=== PATIENT | female | born 1990 | race Caucasian/White ===

== ENCOUNTER 2017-10-22 22:45 | Emergency (ER) | payer OTHER ==
[~2017-10-22] VITALS: Ht 175.3 cm; Wt 129.3 kg
[2017-10-22] MEDS ORDERED: TORADOL ONE (23:09)
[2017-10-22] MEDS ORDERED: TORADOL IM STA (23:09)
[2017-10-22] MEDS ORDERED: PHENERGAN IV STA (23:14)
--- NOTE | 2017-10-22 23:14 | ER.PDOC ---
General Chief Complaint: Abdomen Pain Stated Complaint: R SIDE PAIN Time seen by MD: 23:12 Source: patient Exam Limitations: no limitations History of Present Illness Initial Comments Right lower back pain Timing/Duration: this evening Severity/Quality: moderate Method of Injury: unknown Associated Symptoms: denies symptoms Allergies: Coded Allergies: No Known Allergies (Unverified , 10/17/14) Home Meds No Active Prescriptions or Reported Meds Past Medical History Medical History: diabetes Surgical History: cholecystectomy LMP (females 10-50): this week Social History Smoking: non-smoker Alcohol Use: none Drug Use: none Review of Systems Constitutional: no symptoms reported EENTM: no symptoms reported Respiratory: no symptoms reported Cardiovascular: no symptoms reported Musculoskeletal: see HPI All Other Systems: Reviewed and Negative Physical Exam General Appearance: No Apparent Distress, WD/WN HEENT: PERRL/EOMI, Normal ENT Inspection, TMs Normal, Pharynx Normal Neck: Non-Tender, Normal Alignment Cardiovascular/Respiratory: Regular Rate, Rhythm, No M/R/G, Normal Peripheral Pulses, No JVD, Normal Breath Sounds, No Respiratory Distress Gastrointestinal: Normal Bowel Sounds, No Organomegaly, No Pulsatile Mass, Non Tender, Soft Back: Normal Inspection 1 - tender Extremities: No Evidence of Injury, Normal Range of Motion, Non-Tender, No Pedal Edema, Pelvis Stable Neuro/Psych: Alert, 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, mood/effect nml, No Motor/Sensory Deficits, Relexes nml Results/Orders Results/Orders Laboratory Tests Test 10/22/17 00:00 10/22/17 23:25 Urine Collection Type CCMS Urine Color YELLOW (YELLOW) Urine Appearance CLOUDY (CLEAR) Urine Bilirubin NEGATIVE MG/DL (NEGATIVE) Urine Ketones 5 mg/dL (NEGATIVE) Urine Specific [place] 1.030 (1.005-1.035) Urine pH 5 (5.0-6.0) Urine Protein 30 mg/dL (NEGATIVE) Urine Urobilinogen 1.0 (NEGATIVE) Urine Nitrate NEGATIVE (NEGATIVE) Urine Leukocyte Esterase 25 /uL TRACE (NEGATIVE) Urine Blood 250 4+ (NEGATIVE) Urine RBC TNTC RBC/HPF (NONE SEEN) Urine WBC 2-5 WBC/HPF (0-2) Urine Squamous Epithelial Cells MODERATE #/HPF (FEW) Urine Calcium Oxalate Crystals MODERATE (NONE SEEN) Urine Bacteria RARE (NONE SEEN) Urine Glucose NORMAL (NEGATIVE) Urine HCG, Qualitative NEGATIVE (NEGATIVE) White Blood Count 10.4 10^3/uL (4.5-11.0) Red Blood Count 5.07 10^6/uL (4.00-5.20) Hemoglobin 12.5 g/dL (12.0-15.0) Hematocrit 39.9 % (36.0-46.0) Mean Corpuscular Volume 78.7 fL (78-100) Mean Corpuscular Hemoglobin 24.7 pg (26-34) Mean Corpuscular Hemoglobin Concent 31.3 g/dL (33-37) Red Cell Distribution Width 14.6 % (11.5-14.5) Platelet Count 274 10^3/uL (150-400) Mean Platelet Volume 11.3 fL (7.8-11.0) Neutrophils (%) (Auto) 66.3 % (41.0-85.0) Lymphocytes (%) (Auto) 23.6 % (24.0-44.0) Monocytes (%) (Auto) 6.7 % (5.0-12.0) Neutrophils # (Auto) 6.9 10^3/uL (1.8-7.7) Lymphocytes # (Auto) 2.5 10^3/uL (1.0-4.8) Monocytes # (Auto) 0.7 10^3/uL (0.3-0.8) Absolute Immature Granulocyte (auto 0.01 10^3 u/L (0-2) Eosinophils % 3.1 % (0.0-5.0) Basophils % 0.2 % (0.0-0.2) Basophils # 0.0 10^3/uL (0.0-0.1) Eosinophil Count 0.3 10^3/uL (0.0-0.2) Prothrombin Time 11.0 SEC (9.8-11.9) Prothrombin Time INR (Non-Therap) 1.0 Activated Partial Thromboplast Time 27.7 SEC (24.67-30.72) Sodium Level 138 mmol/L (132-145) Potassium Level 3.7 mmol/L (3.6-5.2) Chloride Level 104.0 mmol/L (96-109) Carbon Dioxide Level 26.5 mmol/L (20.0-32) Anion Gap 11.2 Blood Urea Nitrogen 15 mg/dL (7-18) Creatinine 0.98 mg/dL (0.59-1.40) Estimated GFR () 83.0 (>/=60) BUN/Creatinine Ratio 15.0 Glucose Level 127 mg/dL (70-110) Calcium Level 9.4 mg/dL (8.4-10.5) Total Bilirubin 0.5 mg/dL (0.2-1.0) Aspartate Amino Transf (AST/SGOT) 25 U/L (0-35) Alanine Aminotransferase (ALT/SGPT) 60 U/L (12-78) Alkaline Phosphatase 78 U/L (50-136) Total Protein 7.0 g/dL (6.4-8.2) Albumin 3.9 g/dL (3.4-5.0) Globulin 3.1 Percent Immature Gran (Cell Imm) 0.10 % (0.00-0.50) Administered Medications Medications (Trade) Dose Ordered Sig/Brianda Route PRN Reason Start Time Stop Time Status Last Admin Dose Admin Ketorolac Tromethamine (Toradol) 60 mg STAT STAT IM 10/22/17 23:09 10/22/17 23:12 DC 10/22/17 23:13 EKG/XRAY/CT/US CT Comments: 3mm right UVJ stone Departure Time of Disposition: 00:55 Disposition: 01 HOME, SELF-CARE Impression: Primary Impression: Calculus of right ureter Additional Impression: UTI (urinary tract infection) Condition: Stable Referrals: Christiana BAEZ (PCP) PRIMARY CARE PROVIDER Additional Instructions: Tramadol Flomax Cipro Push fluids F/U with Dr. Perea in 2-3 days if no improvement. Scripts No Active Prescriptions or Reported Meds Duration or Time Spent with Pa: 70 mins Problem Qualifiers Additional Impression: UTI (urinary tract infection) Urinary tract infection type: site unspecified Hematuria presence: with hematuria Qualified Codes: N39.0 - Urinary tract infection, site not specified ; R31.9 - Hematuria, unspecified LUIS MANUEL CHINCHILLA MD Oct 22, 2017 23:14
[2017-10-22 23:15] LABS: BILIRUBIN,URINE NEGATIVE (NEGATIVE)
[2017-10-22 23:26] LABS: UA COLOR YELLOW (YELLOW)
[2017-10-22 23:27] LABS: APPEARANCE,URINE CLOUDY (CLEAR)
[2017-10-22 23:30] LABS: BASOPHIL % 0.2 % (0.0-0.2); EOSINOPHIL # 0.3 10^3/uL (0.0-0.2); EOSINOPHIL % 3.1 % (0.0-5.0); HEMOGLOBIN 12.5 g/dL (12.0-15.0); LYMPHOCYTES # 2.5 10^3/uL (1.0-4.8); LYMPHOCYTES % 23.6 % (24.0-44.0); MEAN CELL HGB 24.7 pg (26-34); MEAN CELL HGB CONCENTRATION 31.3 g/dL (33-37); MEAN CORP VOLUME 78.7 fL (78-100); MEAN PLATELET VOLUME 11.3 fL (7.8-11.0); MONOCYTES # 0.7 10^3/uL (0.3-0.8); MONOCYTES % 6.7 % (5.0-12.0); NEUTROPHIL # 6.9 10^3/uL (1.8-7.7); NEUTROPHILS % 66.3 % (41.0-85.0); RED CELL DISTRIBUTION WIDTH 14.6 % (11.5-14.5); WHITE BLOOD CELL 10.4 10^3/uL (4.5-11.0)
[2017-10-23 00:11] LABS: CALCIUM 9.4 mg/dL (8.4-10.5); CARBON DIOXIDE 26.5 mmol/L (20.0-32)
--- NOTE | 2017-10-23 00:17 | DIREP ---
PROCEDURE:CT ABDOMEN/PELVIS W/O CONTRAST COMPARISON:None. INDICATIONS:Right Lumbar pain TECHNIQUE:Axial images were created through the abdomen and pelvis without intravenous contrast material. No oral contrast was administered. Sagittal and coronal reconstructions were performed from source images. FINDINGS: LUNG BASES:Normal. No visible pulmonary or pleural disease. LIVER:Normal. No significant liver lesions are identified. BILIARY:Normal. No visible dilatation or calcification. PANCREAS:Normal. No lesion, fluid collection, ductal dilatation, or atrophy. SPLEEN:Normal. No enlargement or focal lesion. ADRENALS:Normal. No mass or enlargement. URINARY TRACT:Mild right hydronephrosis and hydroureter with 3 mm obstructing stone in the distal right ureterovesicular junction. No left-sided hydronephrosis. AORTA/VASCULAR:Normal. No aneurysm. RETROPERITONEUM:Prominent nonenlarged retroperitoneal lymph nodes. No mass. BOWEL/MESENTERY:Prominent nonenlarged mesenteric lymph nodes. Normal. There is no intestinal obstruction, free fluid, free air or mesenteric inflammatory changes. ABDOMINAL WALL:Normal. No mass or hernia. PELVIC ORGANS:Normal. No visible mass. Pelvic organs appropriate for patient age. BONES:Normal for age. No bony lesion or acute fracture. OTHER:Negative. CONCLUSION: 1. Mild right hydronephrosis and hydroureter secondary to 3 mm distal obstructing stone at the ureterovesicular junction. 2. Nonspecific nonenlarged retroperitoneal and mesenteric lymph nodes. Dictated by: Fer Collado DO on 10/23/2017 at 00:12 AM
[2017-10-23] MEDS ORDERED: FLOMAX PO STA (00:57)
[2017-10-23] MEDS ORDERED: ZOFRAN ODT SL STA (00:57)
[2017-10-23] MEDS ORDERED: DEMEROL IM STA (00:57)
--- NOTE | 2017-10-23 01:12 | NUR ---
dr itz CALLOWAYASPEAKING WITH DR HINES, APTIENT TO BE ADMITTED TO ICU
[2017-10-23] MEDS ORDERED: ZOFRAN ODT ONE (01:18)
[2017-10-23] MEDS ORDERED: FLOMAX ONE (01:18)
[2017-10-23] MEDS ORDERED: DEMEROL ONE (01:18)
[2017-10-23 01:42] VITALS: BP 93/74
== END 2017-10-23 01:40 | disposition home or self-care (01) ==
LOC: ER 22:45
DX: N20.1 Calculus of ureter (principal); N39.0 Urinary tract infection, site not specified; E11.9 Type 2 diabetes mellitus without complications; Z90.49 Acquired absence of other specified parts of digestive tract
CPT/HCPCS: 36415; 74176; 80053; 81000; 81025; 85025; 85610; 85730; 87086; 96372 ×2; 99285; J1885; J2175; Q0162

== ENCOUNTER 2017-11-26 18:05 | Emergency (ER) | payer OTHER ==
[~2017-11-26] VITALS: Ht 175.3 cm; Wt 124.7 kg
--- NOTE | 2017-11-26 18:05 | NUR ---
ARRIVAL PT ARRIVED VIA STRETCHER BY [facility] TO ER 4 C/O SYNCOPAL EPISODEAT APPROXIMATELY 1730. PT STATES "I THINK I HAVE A SINUS INFECTION". PT STATES PAIN TO RIGHT SIDE OF FACE AND CONGESTION. PT STATES WAS SITTING AT KITCHEN TABLE ABOUT TO TAKE ALEVE WHEN SHE BEGAN FEELING NAUSEATED AND DIZZY AND CALLED FOR HER MOTHER. PT MOTHER STATES PT THEN HAD SYNCOPAL EPISODE WHILE IN CHAIR AND WAS LOWERED TO FLOOR BY HER PARENTS. PT DENIES ANY INJURY. NO ACUTE DISTRESS NOTED. EDP NOTIFIED OF PT ARRIVAL.
[2017-11-26 18:14] VITALS: BP 134/106
--- NOTE | 2017-11-26 18:58 | ER.PDOC ---
General Chief Complaint: Syncope Stated Complaint: SYNCOPE Time seen by MD: 18:54 Source: patient, family Exam Limitations: no limitations History of Present Illness Initial Comments 27 year old white female with syncopal episode. Been having URI symptoms since this am with cough, colds and muscle aches. While in the kitchen earlier today, patient was witnessed to have passed out for few seconds without loss of bladder /bowel control. Afebrile. No loss of bladder/bowel control. No tongue biting. Timing/Prior Episodes: single episode today Symptoms Prior to Episode: other (uri) Precipitating Factors: sitting Loss of Consciousness: Brief (Seconds) Location of Injury: None Current Symptoms: back to normal Prior symptoms/Treatment: Similar symptoms previous Allergies: Coded Allergies: No Known Allergies (Unverified , 10/17/14) Home Meds No Active Prescriptions or Reported Meds Past Medical History Medical History: diabetes Surgical History: cholecystectomy Social History Smoking: less than 1 pack/day Alcohol Use: none Drug Use: none Review of Systems Constitutional: no symptoms reported EENTM: see HPI Respiratory: see HPI Cardiovascular: no symptoms reported Gastrointestinal: no symptoms reported Genitourinary: no symptoms reported Musculoskeletal: no symptoms reported Skin: no symptoms reported Psychiatric/Neurological: see HPI Physical Exam General Appearance: No Apparent Distress, WD/WN HEENT: PERRL/EOMI, Normal ENT Inspection, TMs Normal, Pharynx Normal Neck: Non-Tender, Full Range of Motion, Supple, Normal Inspection Cardiovascular/Respiratory: Regular Rate, Rhythm, No M/R/G, Normal Peripheral Pulses, No JVD, Normal Breath Sounds, No Respiratory Distress Gastrointestinal: Normal Bowel Sounds, No Organomegaly, No Pulsatile Mass, Non Tender, Soft Extremities: Normal Range of Motion, Non-Tender, Normal Inspection, No Pedal Edema, No Calf Tenderness, Normal Capillary Refill Psychiatric: Alert, Oriented x 3 Cranial Nerves: Normal Hearing, Normal Speech, PERRL Coordination/Gait: Normal Finger to Nose, Normal Gait, Negative Romberg's Sign Motor/Sensory: No Motor Deficit, No Sensory Deficit, No Pronator Drift, Negative Babinski's Sign Skin: Normal Color, Warm/Dry Lymphatic: No Adenopathy Results/Orders Results/Orders Laboratory Tests Test 11/26/17 19:00 11/26/17 20:01 White Blood Count 17.3 10^3/uL (4.5-11.0) Red Blood Count 5.00 10^6/uL (4.00-5.20) Hemoglobin 12.8 g/dL (12.0-15.0) Hematocrit 40.4 % (36.0-46.0) Mean Corpuscular Volume 80.8 fL (78-100) Mean Corpuscular Hemoglobin 25.6 pg (26-34) Mean Corpuscular Hemoglobin Concent 31.7 g/dL (33-37) Red Cell Distribution Width 15.8 % (11.5-14.5) Platelet Count 244 10^3/uL (150-400) Mean Platelet Volume 11.6 fL (7.8-11.0) Neutrophils (%) (Auto) 81.7 % (41.0-85.0) Lymphocytes (%) (Auto) 9.1 % (24.0-44.0) Monocytes (%) (Auto) 8.1 % (5.0-12.0) Neutrophils # (Auto) 14.2 10^3/uL (1.8-7.7) Lymphocytes # (Auto) 1.6 10^3/uL (1.0-4.8) Monocytes # (Auto) 1.4 10^3/uL (0.3-0.8) Absolute Immature Granulocyte (auto 0.03 10^3 u/L (0-2) Eosinophils % 0.8 % (0.0-5.0) Basophils % 0.1 % (0.0-0.2) Basophils # 0.0 10^3/uL (0.0-0.1) Eosinophil Count 0.1 10^3/uL (0.0-0.2) Prothrombin Time 10.3 SEC (9.8-11.9) Prothrombin Time INR (Non-Therap) 1.0 Activated Partial Thromboplast Time 27.9 SEC (24.67-30.72) Sodium Level 140 mmol/L (132-145) Potassium Level 3.3 mmol/L (3.6-5.2) Chloride Level 102.0 mmol/L (96-109) Carbon Dioxide Level 27.7 mmol/L (20.0-32) Anion Gap 13.6 Blood Urea Nitrogen 7 mg/dL (7-18) Creatinine 0.70 mg/dL (0.59-1.40) Estimated GFR () 122.4 (>/=60) BUN/Creatinine Ratio 10.0 Glucose Level 104 mg/dL (70-110) Calcium Level 9.0 mg/dL (8.4-10.5) Total Bilirubin 1.0 mg/dL (0.2-1.0) Aspartate Amino Transf (AST/SGOT) 18 U/L (0-35) Alanine Aminotransferase (ALT/SGPT) 48 U/L (12-78) Alkaline Phosphatase 76 U/L (50-136) Total Creatine Kinase 103 U/L (26-192) Creatine Kinase MB 0.5 ng/mL (0.5-3.6) Troponin I < 0.02 ng/mL (0.00-0.05) Total Protein 7.3 g/dL (6.4-8.2) Albumin 3.3 g/dL (3.4-5.0) Globulin 4.0 Percent Immature Gran (Cell Imm) 0.20 % (0.00-0.50) Urine Collection Type CCMS Urine Color YELLOW (YELLOW) Urine Appearance SLIGHTLY HAZY (CLEAR) Urine Bilirubin NEGATIVE MG/DL (NEGATIVE) Urine Ketones NEGATIVE (NEGATIVE) Urine Specific [place] 1.005 (1.005-1.035) Urine pH 8 (5.0-6.0) Urine Protein 15 mg/dL (NEGATIVE) Urine Urobilinogen NORMAL (NEGATIVE) Urine Nitrate NEGATIVE (NEGATIVE) Urine Leukocyte Esterase NEGATIVE (NEGATIVE) Urine Blood NEGATIVE (NEGATIVE) Urine RBC NONE SEEN RBC/HPF (NONE Urine WBC 5-10 WBC/HPF (0-2) Urine Squamous Epithelial Cells RARE #/HPF (FEW) Urine Bacteria RARE (NONE SEEN) Urine Glucose NORMAL (NEGATIVE) Influenza Virus Type A Antibody NEGATIVE (NEG) Influenza Virus Type B Antibody NEGATIVE (NEG) Progress Progress No syncopal episodes observed in ER labs/CT report discussed with patient Departure Time of Disposition: 20:35 Disposition: 01 HOME, SELF-CARE Impression: Primary Impression: Syncope and collapse Additional Impression: Sinusitis, acute Condition: Stable Referrals: Christiana BAEZ (PCP) PRIMARY CARE PROVIDER Scripts No Active Prescriptions or Reported Meds Duration or Time Spent with Pa: 25 Problem Qualifiers Additional Impression: Sinusitis, acute Sinusitis location: pansinusitis Recurrence: non-recurrent Qualified Codes : J01.40 - Acute pansinusitis, unspecified JOHN FARRELL MD Nov 26, 2017 18:58
[2017-11-26 19:13] LABS: BASOPHIL % 0.1 % (0.0-0.2); EOSINOPHIL # 0.1 10^3/uL (0.0-0.2); EOSINOPHIL % 0.8 % (0.0-5.0); HEMOGLOBIN 12.8 g/dL (12.0-15.0); LYMPHOCYTES # 1.6 10^3/uL (1.0-4.8); LYMPHOCYTES % 9.1 % (24.0-44.0); MEAN CELL HGB 25.6 pg (26-34); MEAN CELL HGB CONCENTRATION 31.7 g/dL (33-37); MEAN CORP VOLUME 80.8 fL (78-100); MEAN PLATELET VOLUME 11.6 fL (7.8-11.0); MONOCYTES # 1.4 10^3/uL (0.3-0.8); MONOCYTES % 8.1 % (5.0-12.0); NEUTROPHIL # 14.2 10^3/uL (1.8-7.7); NEUTROPHILS % 81.7 % (41.0-85.0); RED CELL DISTRIBUTION WIDTH 15.8 % (11.5-14.5); WHITE BLOOD CELL 17.3 10^3/uL (4.5-11.0)
--- NOTE | 2017-11-26 19:26 | PCM.EKG ---
[facility] Test Date: 2017-11-26 Test Time: 19:25:30 Pat Name: GUANACO CONSTANTINO Department: Room: Gender: F [employer] Consultant: EREN : 1990 Requested By: DONOVAN FARRELL Order Number: [id number] Reading MD: Donovan Farrell Measurements Intervals Brandon Rate: 84 P: 25 DC: 136 QRS: -4 QRSD: 86 T: 19 QT: 350 QTc: 413 Interpretive Statements Normal sinus rhythm Normal ECG No previous ECG available for comparison Electronically Signed On 11-27-2017 1:38:53 BLOOD SPLATTER ANALYST by Donovan Farrell Please click the below link to view image of tracing.
[2017-11-26 19:36] LABS: ALANINE AMINOTRANSFERASE(ML) 48 U/L (12-78); ALKALINE PHOSPHATASE 76 U/L (50-136); ASPARTATE AMINO TRANSFERASE 18 U/L (0-35); CARBON DIOXIDE 27.7 mmol/L (20.0-32); GLUCOSE 104 mg/dL (70-110)
--- NOTE | 2017-11-26 19:49 | DIREP ---
PROCEDURE:CHEST 1 VIEW COMPARISON:None. INDICATIONS:syncope FINDINGS: LUNGS/PLEURA:No significant pulmonary parenchymal abnormalities. No effusions. VASCULATURE:Normal. Unremarkable pulmonary vasculature. CARDIAC:Normal. No cardiac silhouette abnormality or cardiomegaly. MEDIASTINUM:Normal. No visible mass or adenopathy. BONES:Normal. No fracture or visible bony lesion. OTHER:Negative. CONCLUSION:No acute airspace disease Dictated by: Fer Collado DO on 11/26/2017 at 07:48 PM
--- NOTE | 2017-11-26 19:49 | DIREP ---
PROCEDURE:CT HEAD OR BRAIN W/O CONTRAST COMPARISON:None. INDICATIONS:syncope TECHNIQUE:CT images were created without intravenous contrast. FINDINGS: VENTRICLES:The ventricles are normal in size and configuration. CEREBRUM:Normal cerebral morphology with appropriate dyson white matter differentiation. CEREBELLUM:Negative. BRAINSTEM:Negative. BASAL CISTERNS:Negative. HEMORRHAGE:No MASS LESION:No ACUTE INFARCT:No SKULL:Right maxillary and ethmoid air-fluid levels compatible with acute sinusitis. SINUSES:Normal. OTHER:None CONCLUSION:Acute sinusitis of the right maxillary and ethmoid sinuses, otherwise unremarkable Dictated by: Fer Collado DO on 11/26/2017 at 07:47 PM
[2017-11-26 20:01] LABS: BILIRUBIN,URINE NEGATIVE (NEGATIVE); UROBILINOGEN,URINE NORMAL (NEGATIVE)
[2017-11-26 20:26] VITALS: BP 140/95
[2017-11-26 20:27] LABS: APPEARANCE,URINE SLIGHTLY HAZY (CLEAR); UA COLOR YELLOW (YELLOW)
[2017-11-26] MEDS ORDERED: AUGMENTIN 875-125 TABLET PO STA (20:36)
[2017-11-26] MEDS ORDERED: AUGMENTIN 875-125 TABLET ONE (20:48)
[2017-11-26 21:00] VITALS: BP 140/95
== END 2017-11-26 20:50 | disposition home or self-care (01) ==
LOC: EDBD 18:11 → ER 18:11
DX: R55 Syncope and collapse (principal); J01.40 Acute pansinusitis, unspecified; E11.9 Type 2 diabetes mellitus without complications; F17.200 Nicotine dependence, unspecified, uncomplicated
CPT/HCPCS: 36415; 70450; 71045; 80053; 81000; 82550; 82553; 84484; 85025; 85610; 85730; 86710; 87086; 93005; 99285

== ENCOUNTER → 2021-09-07 | Outpatient (CLI) | payer BC | END | disposition home or self-care (01) | LOC: NPLAB 18:20 | PROVIDERS: ATTEND Nurse Practitioner Family | DX: Z20.822 Contact with and (suspected) exposure to COVID-19 (principal) | CPT/HCPCS: 87633 ==

== ENCOUNTER → 2021-10-26 | Outpatient (CLI) | payer BC | END | disposition home or self-care (01) | LOC: NPLAB 19:16 | PROVIDERS: ATTEND Nurse Practitioner Family | DX: U07.1 COVID-19 (principal) | CPT/HCPCS: 87633 ==

== ENCOUNTER → 2022-06-29 | Outpatient (CLI) | payer BC | END | disposition home or self-care (01) | LOC: LAB 11:00 | PROVIDERS: ATTEND Nurse Practitioner Family | DX: N91.2 Amenorrhea, unspecified (principal); Z32.01 Encounter for pregnancy test, result positive; Z3A.00 Weeks of gestation of pregnancy not specified | CPT/HCPCS: 36415; 84703 ==

== ENCOUNTER 2022-07-13 19:12 | Emergency (ER) | payer BC ==
[~2022-07-13] VITALS: Ht 175.3 cm; Wt 129.3 kg
--- NOTE | 2022-07-13 19:20 | NUR ---
Arrival 32 y/o obese white female ambulatory to ED , flat affect pmhx depression takes prozac and xanax , c/o vag bleeding x 1 day 6 weeks IUP.Urine specimen obtained sent to lab. monitors applied. Dr. Montes notified of pt CC.
[2022-07-13 19:29] VITALS: BP 155/87
--- NOTE | 2022-07-13 19:46 | NUR ---
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
--- NOTE | 2022-07-13 19:51 | ER.PDOC ---
General Chief Complaint: Requesting Medical Care Stated Complaint: 6 WEEKS PREG,VAGINAL BLEEDING Time seen by MD: 19:49 Source: patient Exam Limitations: no limitations History of Present Illness Initial Comments Patient complain of vaginal bleeding since yesterday. She is 6 weeks . No abdominal pain. 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 than periods LMP (females 10-50): : 2 Para: 1 Test: clinic Associated Symptoms: denies symptoms Allergies: Coded Allergies: No Known Allergies (Unverified , 10/17/14) Home Meds No Active Prescriptions or Reported Meds Past Medical History Medical History: other Surgical History: cholecystectomy Family History Significant Family History: no pertinent family hx Social History Smoking: non-smoker Alcohol Use: none Drug Use: none Review of Systems Constitutional: no symptoms reported EENTM: no symptoms reported Respiratory: no symptoms reported Cardiovascular: no symptoms reported Gastrointestinal: no symptoms reported Genitourinary: see HPI All Other Systems: Reviewed and Negative Physical Exam General Appearance: No Apparent Distress, WD/WN EENT: eyes nml inspection, nml ENT inspection, pharynx nml Neck: nml inspection, non-tender Cardiovascular/Respiratory: Regular Rate, Rhythm, No M/R/G, Normal Peripheral Pulses, No JVD, Normal Breath Sounds, No Respiratory Distress Abdomen: Normal Bowel Sounds, Non Tender, Soft, No Organomegaly, No Pulsatile Mass Back: nml inspection Extremities: Normal Range of Motion, Non-Tender, Normal Inspection, No Pedal Edema, No Calf Tenderness, Normal Capillary Refill Neurologic/Psychiatric: gear changer II-XII NML as Tested, No Motor/Sensory Deficits, Alert, Normal Mood/Affect, Oriented x 3 Skin: Normal Color, Warm/Dry Lymphatic: No Adenopathy Results/Orders Results/Orders Orders - LUIS MANUEL CHINCHILLA MD Cbc With Auto Diff (07/13/22 19:46) Comprehensive Metabolic Panel (07/13/22 19:46) PT (07/13/22 19:46) Partial Thromboplastin Time. (07/13/22 19:46) Abo/Rh Type (07/13/22 19:46) Us Tv-Ob (07/13/22 19:46) Urinalysis (07/13/22 19:46) Hcg, Quantitative (07/13/22 19:46) Urine Culture (07/13/22 19:18) Us Preg After 14 Wks (07/13/22 20:50) Vital Signs Date Time Temp Pulse Resp B/P (MAP) Pulse Ox O2 Delivery O2 Flow Rate FiO2 07/13/22 19:29 98.5 94 18 99 07/13/22 19:29 98.5 94 18 07/13/22 19:29 98.5 94 18 155/87 (109) 99 Room Air* 0 21 Laboratory Tests Test 07/13/22 19:18 07/13/22 19:53 Urine Collection Type RANDOM Urine Color YELLOW Urine Appearance CLOUDY Urine Bilirubin NEGATIVE (NEGATIVE) Urine Ketones TRACE (NEGATIVE) H Urine Specific [place] 1.025 (1.005-1.030) Urine pH 7.0 (4.5-8.0) Urine Protein TRACE (NEGATIVE) Urine Urobilinogen 2.0 E.U./dL (0.2) Urine Nitrate NEGATIVE (NEGATIVE) Urine Leukocyte Esterase TRACE (NEGATIVE) H Urine Glucose (Auto)(UA) NEGATIVE (NEGATIVE) Urine Blood 3+ (NEGATIVE) H Urine RBC TooNumerousToCount RBC/HPF (NONE Urine WBC 10-25 WBC/HPF (0-2) H Urine Squamous Epithelial Cells FEW (<=FEW) Urine Bacteria FEW (NONE SEEN) H White Blood Count 13.9 10^3/uL (4.5-11.0) H Red Blood Count 4.56 10^6/uL (4.00-5.20) Hemoglobin 13.2 g/dL (12.0-15.0) Hematocrit 40.9 % (36.0-46.0) Mean Corpuscular Volume 89.7 fL (78-100) Mean Corpuscular Hemoglobin 28.9 pg (26-34) Mean Corpuscular Hemoglobin Concent 32.3 g/dL (33-36.5) L Red Cell Distribution Width 12.8 % (11.5-14.5) Platelet Count 268 10^3/uL (150-400) Mean Platelet Volume 10.6 fL (7.8-11.0) Neutrophils (%) (Auto) 74.4 % (41.0-85.0) Lymphocytes (%) (Auto) 17.0 % (24.0-44.0) L Monocytes (%) (Auto) 5.7 % (5.0-12.0) Neutrophils # (Auto) 10.4 10^3/uL (1.8-7.7) H Lymphocytes # (Auto) 2.37 10^3/uL1 (1.0-4.8) Monocytes # (Auto) 0.8 10^3/uL (0.3-0.8) Absolute Immature Granulocyte (auto 0.01 10^3 u/L (0-2) Absolute Eosinophils (auto) 0.4 10^3/uL (0.0-0.2) H Immature Granulocytes % 0.10 % (0.00-0.50) Eosinophils % 2.5 % (0.0-5.0) Basophils % 0.3 % (0.0-0.2) H Basophils # 0.0 10^3/uL (0.0-0.1) Prothrombin Time 10.4 SEC (9.1-11.5) Prothrombin Time INR (Non-Therap) 1.0 Activated Partial Thromboplast Time 30.5 SEC (22.5-33.1) Sodium Level 141 mmol/L (132-145) Potassium Level 3.6 mmol/L (3.6-5.2) Chloride Level 105.0 mmol/L (96-109) Carbon Dioxide Level 29.7 mmol/L (20.0-32) Anion Gap 9.9 Blood Urea Nitrogen 11 mg/dL (7-18) Creatinine 0.79 mg/dL (0.59-1.40) Estimated GFR () 102.7 (>/=60) Est GFR (CKD-EPI)(Non-Afr Cymro) 84.9 (>/=60) BUN/Creatinine Ratio 13.0 Glucose Level 95 mg/dL (70-110) Calcium Level 9.1 mg/dL (8.4-10.5) Total Bilirubin 0.4 mg/dL (0.2-1.0) Aspartate Amino Transferase (AST) 12 U/L (0-35) Alanine Aminotransferase (ALT) 34 U/L (12-78) Alkaline Phosphatase 85 U/L (50-136) Total Protein 6.7 g/dL (6.4-8.2) Albumin 3.4 g/dL (3.4-5.0) Globulin 3.3 Albumin/Globulin Ratio 1.030 Human Chorionic Gonadotropin, Quant 23 mIU/mL Blood Bank Test 07/13/22 20:55 Blood Type O POSITIVE Progress Progress OB US: of unknown location. No intrauterine gestational sac or intrauterine is seen. No adnexal mass or free fluid is seen. Chemistry is normal. Quant hCG is 23. WBC is 13.9. Hemoglobin is 13.2. Urinalysis is consistent with UTI. Blood type is O+ Patient received Rocephin. ER DEPART Departure Time of Disposition: 21:51 Disposition: HOME / SELF CARE / HOMELESS Impression: Primary Impression: Vaginal bleeding before 22 weeks gestation Additional Impression: UTI (urinary tract infection) Condition: Stable Referrals: SHANE LUCIANO MD (PCP) PRIMARY CARE PROVIDER Additional Instructions: Macrobid Bedrest Pelvic rest Follow-up with your OB provider in 2 days Return to ED if worsening bleeding or concerns Scripts No Active Prescriptions or Reported Meds Duration or Time Spent with Pa: 60 min Problem Qualifiers Additional Impression: UTI (urinary tract infection) Urinary tract infection type: site unspecified Hematuria presence: with hematuria Qualified Codes: N39.0 - Urinary tract infection, site not specified; R31.9 - Hematuria, unspecified LUIS MANUEL CHINCHILLA MD Jul 13, 2022 19:50
[2022-07-13 19:53] LABS: BILIRUBIN,URINE NEGATIVE (NEGATIVE)
[2022-07-13 20:10] LABS: BASOPHIL % 0.3 % (0.0-0.2); EOSINOPHIL # 0.4 10^3/uL (0.0-0.2); EOSINOPHIL % 2.5 % (0.0-5.0); LYMPHOCYTES # 2.37 10^3/uL1 (1.0-4.8); MEAN CORP HGB 28.9 pg (26-34); MONOCYTES # 0.8 10^3/uL (0.3-0.8); MONOCYTES % 5.7 % (5.0-12.0); NEUTROPHIL # 10.4 10^3/uL (1.8-7.7); NEUTROPHILS % 74.4 % (41.0-85.0); PLATELET COUNT 268 10^3/uL (150-400); RED CELL DISTRIBUTION WIDTH 12.8 % (11.5-14.5)
[2022-07-13 20:37] LABS: CARBON DIOXIDE 29.7 mmol/L (20.0-32)
--- NOTE | 2022-07-13 21:15 | DIREP ---
PROCEDURE:US OB 1ST TRI - TV COMPARISON:None. INDICATIONS:VAGINAL BLEEDING TECHNIQUE:Transabdominal and endovaginal pelvic ultrasound images were obtained. Endovaginal images were obtained to optimally evaluate the and maternal adnexal structures. FINDINGS: UTERUS:Normal. The uterus measures 7.7 cm in length. Endometrium measures 11 mm. No intrauterine gestational sac is seen. OVARIES:Normal. The right ovary measures 3.3 x 2.5 x 3.4 cm. The left ovary measures 3.4 x 2.6 x 3.2 cm. CUL-DE-SAC:Normal. OTHER: Survey of the placental anatomic structure and amniotic fluid could not be performed because of gestational age (<14 weeks). CONCLUSION: of unknown location. No intrauterine gestational sac or intrauterine is seen. No adnexal mass or free fluid is seen. Dictated by: Semaj Vallecillo M.D. on 07/13/2022 at 09:11 PM
[2022-07-13] MEDS ORDERED: ROCEPHIN IM STA (21:49)
[2022-07-13] MEDS ORDERED: ROCEPHIN ONE (21:51)
[2022-07-13 21:58] VITALS: BP 140/69
== END 2022-07-13 22:02 | disposition home or self-care (01) ==
LOC: ER 19:12
DX: O20.9 Hemorrhage in early pregnancy, unspecified (principal); O23.41 Unspecified infection of urinary tract in pregnancy, first trimester; N39.0 Urinary tract infection, site not specified; R31.9 Hematuria, unspecified; Z90.49 Acquired absence of other specified parts of digestive tract; Z3A.01 Less than 8 weeks gestation of pregnancy
CPT/HCPCS: 99284; 76805; 96372; 87086; 76817; 80053; 85025; 36415; 81001; 85610; 85730; 86900; 84702; J0696

== ENCOUNTER → 2022-07-15 | Outpatient (CLI) | payer BC | END | disposition home or self-care (01) | LOC: LAB 09:29 | PROVIDERS: ATTEND Obstetrics & Gynecology | DX: O20.0 Threatened abortion (principal); Z3A.00 Weeks of gestation of pregnancy not specified | CPT/HCPCS: 36415; 84702 ==